=== PATIENT | male | born 1940 | race American Indian/Alaskan Native ===

== ENCOUNTER 2019-03-08 09:34 | Day surgery (SDC) | payer MEDICARE ==
[2019-03-08] MEDS ORDERED: NACL 0.9% 1000 ML 1,000 ML IV SCH (10:00)
--- NOTE | 2019-03-08 10:28 | Anesthesia Consultation ---
Anesthesia Consult and Med Hx Date of service: 03/08/19 - Airway Anesthetic Teeth Evaluation: Dentures, Edentulous ROM Head & Neck: Adequate Mental/Hyoid Distance: Adequate Mallampati Class: Class II Intubation Access Assessment: Good - Pulmonary Exam CTA: Yes - Cardiac Exam Cardiac Exam: RRR - Pre-Operative Health Status ASA Pre-Surgery Classification: ASA3 Proposed Anesthetic Plan: MAC - Cardiovascular System Hx Hypertension: Yes Hx Pacemaker: Yes - Endocrine Hx Insulin Dependent Diabetes: Yes - Additional Comments Anesthesia Medical History Comments: Patient with Pacer , has cardiac clearance on chart
--- NOTE | 2019-03-08 10:31 | Anesthesia Day of Surgery ---
Anesthesia Day of Surgery - Day of Surgery Patient Examined: Yes Patient H&P Reviewed: Yes Patient is NPO: Yes
[2019-03-08] MEDS ORDERED: WATER FOR IRRIG STERILE IR ONE (10:36)
[2019-03-08] MEDS ORDERED: DIPRIVAN 10 MG/ML IV ONE ×2 (10:37→10:38)
--- NOTE | 2019-03-08 11:05 | Short Stay Summary ---
Short Stay Documentation Date of service: 03/08/19 Narrative H&P: The patient presents for surveillance colonoscopy. Last study 5 years ago. - History Past Medical History: arrhythmia, hypertension, other (pacemaker placement of arrythmia) Past Surgical History: Other (Pacemaker) Social history: no significant social history - Allergies and Medications Current Medications: Allergies No Known Allergies Allergy (Unverified 03/08/19 09:34) Home Medications Medication Instructions Recorded Confirmed Last Taken Type Allopurinol 300 mg PO DAILY 03/08/19 03/08/19 03/07/19 History Flovent 220 MCG/PUFF HFA 1 puff INHALATION DAILY 03/08/19 03/08/19 03/07/19 History Lisinopril 40 mg PO DAILY 03/08/19 03/08/19 03/07/19 History Lyrica 75 mg PO TID 03/08/19 03/08/19 03/06/19 History Omeprazole 40 mg PO DAILY 03/08/19 03/08/19 03/06/19 History ProAir HFA Inhaler 2 puff INHALATION PRN PRN 03/08/19 03/08/19 Unknown History Triamterene-Hctz 37.5-25 mg Cp 1 tab PO DAILY 03/08/19 03/08/19 03/07/19 History glipiZIDE 10 mg PO DAILY 03/08/19 03/08/19 03/07/19 History metFORMIN 1,000 mg PO BID 03/08/19 03/08/19 03/07/19 History Active Medications Sodium Chloride (Nacl 0.9% 1000 Ml) 1,000 mls @ 50 mls/hr IV DIRECT CASSIE Last Admin: 03/08/19 10:19 Dose: 50 mls/hr Documented by: - Physical exam General appearance: no acute distress, well-nourished Integumentary: no rash, no growths, no abnormal pigmentation HEENT: Atraumatic, PERRLA, EOMI, Mucous membr. moist/pink Lungs: Clear to auscultation, Normal air movement Breasts: deferred Heart: Regular rate, Normal S1, Normal S2, No murmurs Gastrointestinal: normoactive bowel sounds, no tenderness, no distended, no masses, no guarding, no organomegaly Male Genitourinary: deferred Rectal Exam: normal exam-external/orifice, normal rectal tone, no mass Extremities: no ischemia, pulses intact, pulses symmetrical, No edema, normal temperature, normal color, Full ROM Neurological: Normal gait, Normal speech, Strength at 5/5 X4 ext, Normal tone, Sensation intact, Cranial nerves 3-12 NL - Brief post op/procedure progress note Date of procedure: 03/08/19 Findings: see dictation Estimated blood loss: none Pathology: none Condition: stable - Disposition Condition at discharge: Good Disposition: DC-01 TO HOME OR SELFCARE - Discharge Diagnoses (1) History of colon polyps Status: Acute Short Stay Discharge Plan Activity: other (no driving for 24 hours) Diet: regular Follow up with: KERMIT HART MD [Primary Care Provider] - 7 Days
--- NOTE | 2019-03-08 11:07 | Operative Report ---
Operative Report Operative Report: Date of procedure: 03/08/2019 Preprocedure diagnosis: History of colon polyps. Last study 5 years ago. Post procedure diagnosis: Scattered diverticula in left colon. Procedure: Colonoscopy to the cecum Endoscopist: Dr. Manuel Anesthesia: Monitored anesthesia care per anesthesia department Estimated blood loss: 0 Medications: Monitored anesthesia care. See separate report by anesthesia for details. After careful discussion of the nature and purpose of the procedure as well as details of the technique risks benefits and alternatives the patient gave consent. Please see recent history and physical from the office. The patient was placed in the left lateral decubitus position and medicated per anesthesia. A rectal exam was performed sphincter tone was normal there were no masses palpable. The [employer] 570 scope was passed transanally and advanced under continuous direct vision without difficulty to the cecum. The colon was well prepared. The cecum was normal. The ascending colon was normal and on forward and retroflexed views. The transverse colon was normal. There were scattered diverticula in the descending and sigmoid colon. The rectum was normal on forward and retroflexed views. The procedure was well-tolerated overall and the patient was observed in recovery. Conclusions: Scattered diverticula in the left colon. No recurrent polyps. Plan: Repeat colonoscopy in 5 years versus observation in light of age. Signed electronically: Kang Manuel M.D.
[2019-03-08 11:38] VITALS: BP 123/67
[2019-03-08] MEDS ORDERED: XYLOCAINE MPF 2% ONE (13:00)
== END 2019-03-08 09:35 | disposition home or self-care (01) ==
LOC: GIO 09:34
PROVIDERS: ATTEND Internal Medicine Gastroenterology
DX: Z12.11 Encounter for screening for malignant neoplasm of colon (principal); K57.30 Diverticulosis of large intestine without perforation or abscess without bleeding; E78.00 Pure hypercholesterolemia, unspecified; I10 Essential (primary) hypertension; K21.9 Gastro-esophageal reflux disease without esophagitis; E11.9 Type 2 diabetes mellitus without complications; Z86.010 Personal history of colon polyps; Z79.899 Other long term (current) drug therapy; Z79.84 Long term (current) use of oral hypoglycemic drugs; Z95.0 Presence of cardiac pacemaker; Z98.890 Other specified postprocedural states
CPT/HCPCS: 82962; G0105; J2704; J7030